=== PATIENT | female | born 1980 | race Caucasian/White ===

== ENCOUNTER 2024-01-31 18:08 | Emergency (ER) | payer BC, SELFPAY ==
--- NOTE | ~2024-01-31 | XR_ITS ---
XR abdomen/kub 1V DATE: 01/31/2024 19:08 INDICATION: Umbilical pain TECHNIQUE: 2 supine AP views COMPARISON: None FINDINGS: An IUD is noted. There is no evidence of bowel obstruction. The psoas shadows are intact. No visceromegaly or abnorm al calcification is detected. IMPRESSION: IUD; otherwise unremarkable Reviewed, dictated and finalized at [facility]. Reviewed, dictated and finalized at [facility]. R PROGRAMMER IMPRESSION: IUD; otherwise unremarkable
[2024-01-31 18:17] VITALS: BP 127/75; PULSE 84; RESP 16; TEMP 36.4; O2SAT 100
--- NOTE | 2024-01-31 18:34 | ED.ABDPAIN ---
HPI - Abdominal Pain General Chief Complaint: Abdominal Pain Stated Complaint: Stomach Pain Time Seen by Provider: 01/31/24 18:34 Source: patient Mode of arrival: ambulatory Limitations: no limitations History of Present Illness HPI narrative: 43-year-old female presents with complaint of abdominal pain since yesterday. Afebrile. No urinary symptoms. Denies nausea vomiting diarrhea. Denies constipation. Patient has not tried any [id number] medications to treat pain. All systems reviewed and negative except as noted above. Review of Systems Review of Systems: CONSTITUTIONAL: Denies fever, chills, or sweats. EYES: Denies visual changes, redness, or discharge. ENT: Denies rhinorrhea, congestion, sore throat, or otalgia. CARDIOVASCULAR: Denies chest pain, palpitations, or edema. RESPIRATORY: Denies cough or dyspnea. GASTROINTESTINAL: Reports abdominal pain. Denies nausea, vomiting, or diarrhea. GENITOURINARY: Denies dysuria or hematuria. SKIN: Denies rash or itching. MUSCULOSKELETAL: Denies back pain, joint pain, or myalgia. NEUROLOGIC: Denies headache, numbness, or weakness. PSYCHIATRIC: Denies anxiety or depression. All other systems reviewed are negative, except as documented in HPI. PMFSH Comments At time of signature, agree with nursing past medical, surgical, social and family history. There is no relevant family history pertinent to the presenting complaint. Exam Narrative: GENERAL: This is a well-nourished, well-developed patient, in no apparent distress. HEAD: normocephalic, atraumatic. EYES: PERRL. Sclera clear/white. Vision is grossly intact. EARS: External ears normal NOSE: External nose normal NECK: Neck supple, non-tender without lymphadenopathy, masses or thyromegaly. CARDIOVASCULAR: Regular rate and rhythm without murmurs, gallops, or rubs. RESPIRATORY: Clear to auscultation. Breath sounds equal bilaterally. No wheezes, rales, or rhonchi. GASTROINTESTINAL: Abdomen soft, tenderness to umbilical and suprapubic, nondistended. Bowel sounds are hypo active. No hepato-splenomegaly, or palpable masses. No guarding. SKIN: warm, Dry, intact with no suspicious lesions or rash, good texture and turgor. NEURO: awake, alert, and oriented to person, place and time. There were no obvious focal neurologic abnormalities. EXTREMITIES: No joint tenderness, effusion, or edema noted. Course Course Level of Care: Express Care Visit Vital Signs Vital signs: Vital Signs Temperature 36.4 C 01/31/24 18:17 Pulse Rate 84 01/31/24 18:17 Respiratory Rate 16 01/31/24 18:17 Blood Pressure 127/75 01/31/24 18:17 Pulse Oximetry 100 01/31/24 18:17 Temperature 36.4 C 01/31/24 18:17 Pulse Rate 84 01/31/24 18:17 Respiratory Rate 16 01/31/24 18:17 Blood Pressure 127/75 01/31/24 18:17 Pulse Oximetry 100 01/31/24 18:17 Reviewed MDM - Abdominal Pain MDM Narrative Medical decision making narrative: Patient is well appearing. Talkative and laughing. Afebrile. Nontoxic. Not in any pain distress. Urinalysis negative for urinary tract infection. No bowel obstruction noted on KUB but significant amount of stool noted. Recommend patient try [id number] Dulcolax and MiraLax. If continues to have abdominal pain or worsening of symptoms go to the ER. Patient agrees with plan of care. Patient is aware of diagnosis, understands and agrees to treatment plan. Anticipatory guidance given. Patient agrees to follow-up as directed and is aware of reasons to seek care at the emergency department. Portions of this record may have been created with voice recognition software Differential Diagnosis Differential diagnosis: Likely abdominal pain, acute appendicitis, constipation and small bowel obstruction ABG Data ABG results: Agree with radiologist Interpretation: XR abdomen/kub 1V DATE: 01/31/2024 19:08 INDICATION: Umbilical pain TECHNIQUE: 2 supine AP views COMPARISON: None FINDINGS: An IUD is noted. There is no evidence of bowel obstruction. The psoas shadows are intact. No visceromegaly or abnormal calcification is detected. IMPRESSION: IUD; otherwise unremarkable Discharge Plan Discharge Clinical Impression: Constipation Patient Disposition: Home, Self-Care Condition: Stable Instructions: Constipation (DC) Additional Instructions: Purchase [id number] MiraLax and Dulcolax and take as directed on packaging. Drink at least 64 oz of water a day. If you continue to have abdominal pain or develop a fever, vomiting go to the ER. Follow-up/Referrals: PHYSICIAN,MEDICAL SUPPORT SPECIALIST [Primary Care Provider] - Time of Disposition: 19:21
[2024-01-31 18:59] LABS: BEDSIDEPREGUCG Negative (Negative); EDUAAPPEAR Clear; EDUABILI Negative (Negative); EDUABLOOD Negative (Negative); EDUACOLOR1 Yellow; EDUAGLUCOSE Negative (Negative); EDUAKETONE Negative (Negative); EDUALEUKO Trace (Negative); EDUANITRATE Negative (Negative); EDUAPH 7.5; EDUAPROTEIN Negative (Negative)
== END 2024-01-31 19:22 | disposition home or self-care (01) ==
PROVIDERS: Emergency Provider Nurse Practitioner Family
DX: K59.00 Constipation, unspecified (principal)
CPT/HCPCS: 74018; 81003; 81025; 99213; G0463